=== PATIENT | female | born 1955 | race Caucasian/White ===

== ENCOUNTER → 2016-08-12 | Outpatient (CLI) | payer OTHER ==
--- NOTE | 2016-08-12 12:02 | US ---
Limited Right Upper Quadrant Ultrasound History: Right upper quadrant pain. Comparison: CT abdomen pelvis March 25, 2014, abdominal ultrasound March 25, 2014. Findings: The liver is borderline echogenic with heterogeneous echotexture with no focal hepatic mass es. There is no intrahepatic biliary dilatation. The common bile duct measures 5 mm and is normal. Th e gallbladder is normal. The right kidney measures 10.1 cm and has normal echotexture and contour wit hout hydronephrosis. The visible aorta is normal caliber . The visible portions of the pancreas are normal with limited visualization of the pancreatic head and tail. Impression: 1. No acute findings in the abdomen. 2. Heterogeneous borderline echogenic liver, which could related to fatty infiltration. Message left with Ruy Kaufman MD 08/12/2016 at 11:57.
== END ==
LOC: FIMAGING 10:51
PROVIDERS: ATTEND Internal Medicine
DX: K76.9 Liver disease, unspecified (principal); R10.11 Right upper quadrant pain

== ENCOUNTER → 2016-08-29 | Outpatient (CLI) | payer OTHER | LOC: FIMAGING 12:26 | PROVIDERS: ATTEND Surgery | DX: R10.11 Right upper quadrant pain (principal) | CPT/HCPCS: A9537 ==

== ENCOUNTER → 2016-09-03 | Outpatient (CLI) | payer OTHER | LOC: CIMAGING 15:47 | PROVIDERS: ATTEND Internal Medicine | DX: R10.11 Right upper quadrant pain (principal) | CPT/HCPCS: 71020-PO ==

== ENCOUNTER → 2016-11-07 | Outpatient (CLI) | payer OTHER | LOC: FIMAGING 12:44 | DX: Z12.31 Encounter for screening mammogram for malignant neoplasm of breast (principal) | CPT/HCPCS: G0202 ==